=== PATIENT | male | born 1965 | race Caucasian/White ===

== ENCOUNTER 2020-08-16 14:52 | Emergency (ER) | payer MEDICAID ==
[~2020-08-16] VITALS: Ht 167.6 cm; Wt 81.6 kg
[2020-08-16 15:01] VITALS: Ht 167.6 cm; Wt 81.6 kg
[2020-08-16 17:22] VITALS: BP 138/96
== END 2020-08-16 17:22 | disposition home or self-care (01) ==
LOC: ED 14:52
DX: M54.42 Lumbago with sciatica, left side (principal); M13.872 Other specified arthritis, left ankle and foot; Z98.890 Other specified postprocedural states
CPT/HCPCS: J1885